=== PATIENT | female | born 1945 | race Caucasian/White ===

== ENCOUNTER 2023-07-08 09:23 | Outpatient (CLI) | payer OTHER | END 2023-07-08 09:24 | disposition home or self-care (01) | LOC: BICMAMMO 09:23 | PROVIDERS: ATTEND Family Medicine | DX: Z12.31 Encounter for screening mammogram for malignant neoplasm of breast (principal); M81.0 Age-related osteoporosis without current pathological fracture; M85.89 Other specified disorders of bone density and structure, multiple sites | CPT/HCPCS: 77063; 77067; 77080 ==

== ENCOUNTER 2023-09-18 13:43 | Outpatient (CLI) | payer OTHER | END 2023-09-18 13:44 | disposition home or self-care (01) | LOC: BICRAD 13:43 | PROVIDERS: ATTEND Family Medicine | DX: R01.1 Cardiac murmur, unspecified (principal) | CPT/HCPCS: 71046 ==

== ENCOUNTER 2025-07-14 13:13 | Outpatient (CLI) | payer OTHER | END 2025-07-14 13:14 | disposition home or self-care (01) | LOC: BICMAMMO 13:13 | PROVIDERS: ATTEND Family Medicine | DX: M81.0 Age-related osteoporosis without current pathological fracture (principal) | CPT/HCPCS: 77080 ==